=== PATIENT | female | born 2000 | race Native Hawaiian/Other Pacific Islander ===

== ENCOUNTER 2021-09-24 08:49 | Emergency (ER) | payer OTHER ==
[2021-09-24 09:02] VITALS: BP 119/82
--- NOTE | 2021-09-24 09:48 | ED Physician Documentation ---
History of Present Illness - Stated complaint Stated Complaint: LT KNEE INJ - Chief complaint Chief Complaint: Trauma Ext - History obtained from History obtained from: Patient - History of Present Illness Timing: Yesterday Pain level max: 5 Pain level now: 3 - Additonal information Additional information: Patient is a 21-year-old female who states she was playing volleyball last night when she twisted on the knee, causing pain to the medial aspect of the left knee. She states it is swollen today, painful with walking and feels like it is "giving out" on her. Patient denies any possibility of Review of Systems Constitutional: denies: Fever, Chills GI: denies: Vomiting, Diarrhea Musculoskeletal: denies: Neck pain, Back pain Neurologic: denies: Headache, Head injury PD PAST MEDICAL HISTORY - Past Medical History Past Medical History: No - Past Surgical History Past Surgical History: No - Present Medications Home Medications: Ambulatory Orders Medication Instructions Recorded Confirmed No Known Home Medications 09/24/21 09/24/21 - Allergies Allergies/Adverse Reactions: Allergies Allergy/AdvReac Type Severity Reaction Status Date / Time No Known Drug Allergies Allergy Verified 09/24/21 09:02 - Living Situation Living Arrangement: reports: At home - Social History Does the pt smoke?: No Smoking Status: Never smoker PD ED PE NORMAL - Vitals Vital signs reviewed: Yes - General General: Alert and oriented X 3 - HEENT HEENT: Moist mucous membranes - Neck Neck: Supple, no meningeal sign - Cardiac Cardiac: RRR - Respiratory Respiratory: No respiratory distress, Clear bilaterally - Derm Derm: Warm and dry - Extremities Extremities: Other (Unable to tolerate meniscusTender to palpation along the medial joint line of the left knee. ACL, PCL, LCL are intact. Mild laxity of the MCL. Testing. Neurovascular intact) - Neuro Neuro: Alert and oriented X 3 Results - Vitals Vitals: Vital Signs - 24 hr 09/24/21 08:59 Temperature 36.1 C L Heart Rate 64 Respiratory 16 Rate Blood Pressure 119/82 H O2 Saturation 99 Oxygen O2 Source Room air - Rads (name of study) Left knee x-ray Radiology: Final report received, EMP read contemporaneously, See rad report (No acute abnormality) PD MEDICAL DECISION MAKING - ED course Complexity details: reviewed results, re-evaluated patient, considered differential, d/w patient ED course: 21-year-old female with what appears to be a left knee sprain. No acute findings on x-ray of the left knee. The articulating knee brace did not fit her correctly, therefore we will have her be nonweightbearing on the leg. Crutches given. I will have her follow-up with orthopedics for repeat evaluation and further care. Patient counseled regarding signs and symptoms for which I believe and urgent re-evaluation would be necessary. Patient with good understanding of and agreement to plan and is comfortable going home at this time This document was made in part using voice recognition software. While efforts a re made to proofread this document, sound alike and grammatical errors may occur. Departure - Departure Disposition: 01 Home, Self Care Clinical Impression: Sprain of left knee Qualifiers: Encounter type: initial encounter Involved ligament of knee: unspecified ligament Qualified Code(s): S83.92XA - Sprain of unspecified site of left knee, initial encounter Condition: Good Instructions: ED Sprain Knee Collateral Ligaments Follow-Up: Orthopedic Care [Provider Group] Comments: You appear to have sprained your left knee. You may also have a meniscus injury. It is recommended that you follow-up with orthopedics next week when the swelling has decreased for repeat evaluation. you may bear weight as tolerated. We will place you in an articulating knee brace to help prevent any instability in the knee. You can use Motrin or Tylenol as needed for pain. Return if you worsen Discharge Date/Time: 09/24/21 10:54
--- NOTE | 2021-09-24 10:02 | XRAY Report ---
PROCEDURE: Knee 4 View LT INDICATIONS: fall playing volleyball TECHNIQUE: 4 views of the left knee(s) were acquired. COMPARISON: None. FINDINGS: Bones: No fractures or dislocations. No suspicious bony lesions. Soft tissues: No joint effusion. No suspicious soft tissue calcifications. IMPRESSION: No fracture. No osseous lesion. If there are persistent symptoms or continued clinical concern for pa thology, then repeat plain film radiographs (7-10 days) or advanced imaging (CT, MR, bone scan) shoul d be considered for further evaluation. Reviewed by: Tosin Burt MD, PhD on 09/24/2021 10:01 AM [facility] Approved by: Tosin Burt MD, PhD on 09/24/2021 10:01 AM [facility] Station ID: [id number]
== END 2021-09-24 10:54 | disposition home or self-care (01) ==
LOC: ED 08:49
DX: S83.92XA Sprain of unspecified site of left knee, initial encounter (principal); X50.1XXA Overexertion from prolonged static or awkward postures, initial encounter; Y93.68 Activity, volleyball (beach) (court)
CPT/HCPCS: 99282; 99283

== ENCOUNTER 2021-10-27 15:26 | Outpatient (CLI) | payer OTHER ==
--- NOTE | 2021-10-28 08:55 | MRI Report ---
PROCEDURE: Knee LT W/O INDICATIONS: PAIN IN KNEE TECHNIQUE: Noncontrast sagittal PD fast spin echo and T2 fast spin echo with fat saturation, sagittal 3-D gradie nt sequence with fat saturation; coronal T1 spin echo and PD fast spin echo with fat saturation, and axial PD fast spin echo with fat saturation through the knee. COMPARISON: X-ray left knee, 09/16/2021. FINDINGS: Image quality: Excellent. Menisci: The medial and lateral menisci demonstrate normal morphology and internal signal. The meni scal root ligaments appear intact. Cruciate ligaments: The anterior cruciate ligament is torn. The posterior cruciate ligament is intac t. Medial structures: The medial collateral ligament appears intact. The semimembranosus tendon insert ions and meniscocapsular junction appear intact. Visualized portions of the pes anserinus tendons ap pear normal. No abnormal bursal fluid. Lateral structures: The lateral collateral ligament, long and short heads of the biceps femoris tend on appear intact. The popliteus tendon appears normal. Iliotibial band appears normal. Anterior structures: The quadriceps and patellar tendons appear intact. Patellar alignment is oral l. No femoral trochlear dysplasia or ventral trochlear prominence. No edema in the infrapatellar fa t pad. Bones and cartilage: No displaced fractures. There is bone contusion in the anterior aspect of the lateral femoral condyle and posterior aspect of the lateral tibial plateau, consistent with impaction injury. The cartilage of the medial and lateral femorotibial compartments, as well as the patellofem oral compartment, appears normal in thickness. Joint space: There is moderate knee joint effusion. No Tatum's cyst. Normal appearing synovial pli are incidentally noted. IMPRESSION: 1. Anterior cruciate ligament tear. 2. Bone contusions in the lateral femoral condyle and lateral tibial plateau. 3. Moderate knee joint effusion. Reviewed by: Melissa Canales MD on 10/28/2021 8:53 AM PST Approved by: Melissa Canales MD on 10/28/2021 8:53 AM PST Station ID: [id number]
== END 2021-10-27 15:27 | disposition home or self-care (01) ==
LOC: DI 15:26
PROVIDERS: ATTEND Student in an Organized Health Care Education/Training Program
DX: S83.512A Sprain of anterior cruciate ligament of left knee, initial encounter (principal); S70.12XA Contusion of left thigh, initial encounter; S80.12XA Contusion of left lower leg, initial encounter; M25.462 Effusion, left knee